=== PATIENT | female | born 1990 | race Caucasian/White ===

== ENCOUNTER 2018-05-18 23:36 | Inpatient (IN) | payer OTHER ==
[2018-05-19 00:12] VITALS: BMI 26.2
[2018-05-19] MEDS ORDERED: Lidocaine 1% (PF) 30 ML VIAL SC PRN (00:58)
[2018-05-19] MEDS ORDERED: Promethazine HCl 25 MG/ML VIAL IM PRN (00:58)
[2018-05-19] MEDS ORDERED: Methylergonovine 0.2 MG/ML VIAL IM PRN (00:58)
[2018-05-19] MEDS ORDERED: Acetaminophen 500 MG TAB PO PRN (00:58)
[2018-05-19] MEDS ORDERED: NS / Oxytocin 40 units/1000ml 1,000 ML IV PRN (00:58)
[2018-05-19] MEDS ORDERED: Docusate 100 MG CAP PO PRN (00:58)
[2018-05-19] MEDS ORDERED: Misoprostol 200 MCG TAB PR PRN (00:58)
[2018-05-19] MEDS ORDERED: Ondansetron HCl/PF 4 MG/2 ML Vial IVP PRN ×2 (00:58→11:13)
[2018-05-19] MEDS ORDERED: Carboprost 250 MCG/ML AMP IM PRN (00:58)
--- NOTE | 2018-05-19 01:07 | PDOC.FPROB ---
FMR OB H&P: HPI - History of Present Illness Chief Complaint: SROM with meconium History of Present Illness: 27 yo at 39.5 wk who presents with SROM with meconium stained fluid that occur at approximately 2015 this evening. She states her contractions have spaced out and she became concern, prompting her to come to L&D for evaluation. Primary Care Physician: Dr. 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 - OB Labs Blood type: B RH: negative Antibody Screen: negative HIV: negative RPR: negative HepBsAg: negative Rubella: immune Urine drug screen: not done Gonorrhea: negative Chlamydia: negative Pap Smear: not on file 1 hour gtt: 104 GBS: negative H&H: 13.0/36.5 Platelets: 53 (on 04/18) - First Trimester Ultrasound First trimester: unremarkable S=D - Anatomy Survey Anatomy survey: unremarkable FMR OB H&P: History - Past Medical History PMH: ITP - OB History OB History: 2 SAB 1 TIUP delivered at 39 weeks. - POLICY ADVISER History POLICY ADVISER History: None - Surgical History Sx History: [place] teeth - Social History Social History: no tobacco, alcohol, or illicit drug use. - Family History Family History: ITP- mother FMR OB H&P: Medications - Current Home Medications: Medication Instructions Recorded Confirmed Type Dexamethasone 4 mg PO DAILY 04/11/16 05/19/18 History Puxmaljd28/Iron/Folate8/Ps-Dha 1 each PO DAILY 04/11/16 05/19/18 History [Enbrace Hr Softgel] Allergies/Adverse Reactions: Allergies Allergy/AdvReac Type Severity Reaction Status Date / Time sulfamethoxazole Allergy Intermediate Verified 05/19/18 00:12 [From Bactrim] trimethoprim [From Bactrim] Allergy Intermediate Verified 05/19/18 00:12 FMR OB H&P: ROS - Review of Systems General: denies: fever/chills, weight/appetite/sleep changes, night sweats, fatigue, recent trauma Eyes: denies: eye pain, vision changes ENT: denies: nasal congestion, rhinorrhea, frequent nose bleed Cardiovascular: denies: chest pain, palpitation Respiratory: denies: cough, congestion Gastrointestinal: denies: abdominal pain, indigestion, constipation Genitourinary (Female): reports: vaginal discharge. denies: incontinence, dysuria Musculoskeletal: denies: pain, stiffness Neurologic: denies: numbness, syncope Integumentary: denies: itching, rash Breast: denies: bumps, masses Endocrine: denies: cold intolerance, heat intolerance Hematologic/Lymphatic: denies: prolonged or excessive bleeding, enlarged lymph nodes Psychological: denies: depression, anxiety FMR OB H&P: Vital Signs - Maternal Vital signs: Vital Signs - First Documented Temp Pulse Resp BP 98.0 F 86 18 126/80 05/19/18 00:01 05/19/18 00:01 05/19/18 00:01 05/19/18 00:01 - Heart Tones Baseline: 120 Variability: minimal Acceleration: present Deceleration: absent Category: category 2 [place] contractions every: q10-15 min FMR OB H&P: Physical Exam - Physical Exam General: NAD, awake, alert and oriented HEENT: normocephalic and atraumatic, no scleral icterus Neck: supple, trachea midline Chest: non-tender to palpation, no lesions Heart: RRR, normal S1/S2, no murmurs/rubs/gallops General: CTAB, no respiratory distress Abdomen: soft, gravid, non-tender, bowel sound present Musculoskeletal: normal gait and station, pulses present, no misalignment/ asymmetry Neurological: cranial nerves II through XII intact, sensation to pain,touch and proprioception grossly normal, strength +5 Skin: no rash, good tugor Lymphatic: no unusual bruising or bleeding, no purpura Psychiatric: intact recent and remote memory, normal mood and affect - Pelvic Exam Vulva: normal hair distribution, no masses, no lesions SVE: 3/-1 Membranes: SROM Presentation: vertex Estimated Weight: 7 lbs FMR OB H&P: Results - Labs Lab results: Pending FMR OB H&P: A/P - Problem List (1) SROM (spontaneous rupture of membranes) Current Visit: Yes Status: Acute Code(s): [id number] - (2) Current Visit: Yes Status: Acute Qualifiers: Weeks of gestation: 39 weeks Qualified Code(s): Z3A.39 - 39 weeks gestation of (3) Thrombocytopenia complicating Current Visit: No Status: Acute Code(s): O99.119 - OTH DIS OF BLD/BLD-FORM ORG/IMMUN MECHNSM COMP PREG,UNSP TRI; D69.6 - THROMBOCYTOPENIA, UNSPECIFIED Qualifiers: Trimester: third trimester Qualified Code(s): O99.113 - Other diseases of the blood and blood-forming organs and certain disorders involving the immune mechanism complicating , third trimester; D69.6 - Thrombocytopenia, unspecified Disposition: TIUP in labor- expectant management, patient desires low intervention suite. Will monitor with q1hr 20 min FHT. routine labs SROM- monitor for signs of infection ITP- repeat CBC Discussion: Date/Time: 05/19/18 0104 This H&P was discussed with Dr. Perez who agree with the above documentation and plan.
[2018-05-19 02:47] LABS: Hemoglobin 13.3 g/dL (12.0-16.0); Mean Corpuscular HGB CONC 35.3 g/dL (32.0-36.0); Mean Corpuscular Hemoglobin 31.6 pg (27.0-31.0); Mean Corpuscular Volume 89.6 fL (78.0-98.0); Mean Platelet Volume 11.9 fL (7.4-10.4); Platelet Count 84 thou/uL (130-400); RBC Distribution Width 12.3 % (11.5-14.5); Red Blood Cell (RBC) Count 4.22 mill/uL (4.20-5.40); White Blood Cell (WBC) Count 10.9 thou/uL (4.8-10.8)
[2018-05-19 03:22] LABS: HBSAg Index 0.13 S/CO (0-0.99); Hep B Surf Ag Non-Reactive S/CO (NonReactive)
[2018-05-19 05:47] LABS: Syphilis Antibody Nonreactive (Nonreactive); Syphilis Antibody Index 0.02 S/CO (<1.00 Non-Reactive)
[2018-05-19] MEDS ORDERED: Lactated Ringer's 1,000 ML IV SCH (08:30)
--- NOTE | 2018-05-19 11:10 | PDOC.OPDEL ---
OB Operative/Delivery Note Delivery Dr/Surgeon: Cliff Assist: Erasmo Pre-Delivery Diagnosis: active labor Procedure/Post Delivery Dx: spontaneous vaginal delivery Weeks gestation: 39 Anesthesia: none - Findings A Sex: female - 1 min: 8 - 5 min: 9 - Additional Findings/Plan Placenta delivered: spontaneous Repaired Obstetrical Laceration: none Estimated blood loss: QBL 147ml Compilations/Other Findings: Pt with preciptious 2nd stage, controlled delivery of over intact perineum per Dr. Zimmerman. Placenta delivered spont w myself gowned at bedside. No lacs. Post delivery plan: routine recovery
[2018-05-19] MEDS ORDERED: Bisacodyl 10 MG SUPP PR PRN (11:13)
[2018-05-19] MEDS ORDERED: Milk Of Magnesia 30 ML UDCUP PO PRN (11:13)
[2018-05-19] MEDS ORDERED: Acetaminophen/Codeine 30-300mg Tablet PO PRN ×2 (11:13)
[2018-05-19] MEDS ORDERED: Lanolin Ointment 7 GM TUBE TOP PRN (11:13)
[2018-05-19] MEDS ORDERED: Adacel (T-DAP) 0.5 ML VIAL IM ONE (11:13)
[2018-05-19] MEDS ORDERED: diphenhydrAMINE 25 MG CAP PO PRN (11:13)
[2018-05-19] MEDS ORDERED: Preparation H Ointment 28 GM TUBE PR PRN (11:13)
[2018-05-19] MEDS ORDERED: Benzocaine/Menthol 20-0.5% 60 ML CAN TOP PRN (11:13)
[2018-05-19] MEDS: NS / Oxytocin 40 units/1000ml 1,000 ML IV SCH ×2 (11:25→12:34)
[2018-05-19] MEDS ORDERED: Ibuprofen 800 MG TAB PO SCH (14:00)
[2018-05-19] MEDS: Ibuprofen 800 MG TAB PO SCH (17:13)
[2018-05-19] MEDS: Ferrous Sulfate 325 MG TAB PO SCH (17:23)
[2018-05-19] MEDS: Docusate Calcium (SURFAK) 240 MG CAP PO SCH (22:07)
[2018-05-20] MEDS: Ibuprofen 800 MG TAB PO SCH ×3 (00:59→16:54)
[2018-05-20 05:24] LABS: Hemoglobin 11.8 g/dL (12.0-16.0); Mean Corpuscular HGB CONC 34.2 g/dL (32.0-36.0); Mean Corpuscular Volume 90.5 fL (78.0-98.0); Mean Platelet Volume 10.3 fL (7.4-10.4); Platelet Count 77 thou/uL (130-400); RBC Distribution Width 12.2 % (11.5-14.5); Red Blood Cell (RBC) Count 3.82 mill/uL (4.20-5.40); White Blood Cell (WBC) Count 8.9 thou/uL (4.8-10.8)
[2018-05-20] MEDS: Ferrous Sulfate 325 MG TAB PO SCH ×2 (07:30→16:54)
[2018-05-20 08:16] VITALS: BP 111/68; TEMP 98.2
[2018-05-20] MEDS ORDERED: Prenatal Vitamin 1 TAB PO SCH (09:00)
[2018-05-20] MEDS: Docusate Calcium (SURFAK) 240 MG CAP PO SCH (09:24)
== END 2018-05-20 17:10 | disposition home or self-care (01) | DRG 775 ==
LOC: L&D/OP 23:36 → L&D-LIB 05-19 02:40 → L&D 05-19 08:18 → 3SW 05-19 13:34
PROVIDERS: ADMIT Obstetrics & Gynecology; ATTEND Obstetrics & Gynecology
PROC: 10E0XZZ Delivery of Products of Conception, External Approach (ICD-10-PCS; principal; 2018-05-19)
DX: O77.0 Labor and delivery complicated by meconium in amniotic fluid (principal); Z3A.39 39 weeks gestation of pregnancy; Z37.0 Single live birth
CPT/HCPCS: 36415; 85025; 85027; 86780; 86850; 86870; 86900; 86901; 87340; 99285; A4216; J2001